=== PATIENT | female | born 1990 | race Caucasian/White ===

== ENCOUNTER → 2023-09-01 09:37 | Outpatient (REF) | payer BC, SELFPAY | LOC: HWRAD 09:37 | PROVIDERS: ATTENDING PHYSICIAN Obstetrics & Gynecology Gynecology; FAMILY PHYSICIAN Family Medicine | DX: N93.9 Abnormal uterine and vaginal bleeding, unspecified (principal) | CPT/HCPCS: 76830; 76856 ==

== ENCOUNTER → 2024-12-26 11:11 | Outpatient (REF) | payer BC, SELFPAY | LOC: PNTC 11:11 | PROVIDERS: ATTENDING PHYSICIAN Student in an Organized Health Care Education/Training Program | DX: O36.5990 Maternal care for other known or suspected poor fetal growth, unspecified trimester, not applicable or unspecified (principal) | CPT/HCPCS: 76815 ==

== ENCOUNTER → 2025-01-14 11:27 | Outpatient (REF) | payer BC, SELFPAY | LOC: PNTC 11:27 | PROVIDERS: ATTENDING PHYSICIAN Student in an Organized Health Care Education/Training Program | DX: O35.2XX0 Maternal care for (suspected) hereditary disease in fetus, not applicable or unspecified (principal) | CPT/HCPCS: 76805 ==

== ENCOUNTER → 2025-02-11 09:03 | Outpatient (REF) | payer BC, SELFPAY | LOC: PNTC 09:03 | PROVIDERS: ATTENDING PHYSICIAN Student in an Organized Health Care Education/Training Program | DX: O09.529 Supervision of elderly multigravida, unspecified trimester (principal); Q18.0 Sinus, fistula and cyst of branchial cleft | CPT/HCPCS: 76811; 76817 ==

== ENCOUNTER → 2025-03-25 10:59 | Outpatient (REF) | payer BC, SELFPAY | LOC: PNTC 10:59 | PROVIDERS: ATTENDING PHYSICIAN Obstetrics & Gynecology | DX: O09.522 Supervision of elderly multigravida, second trimester (principal); O28.3 Abnormal ultrasonic finding on antenatal screening of mother; O35.8XX0 Maternal care for other (suspected) fetal abnormality and damage, not applicable or unspecified | CPT/HCPCS: 76816 ==

== ENCOUNTER → 2025-05-06 09:50 | Outpatient (REF) | payer BC, SELFPAY | LOC: PNTC 09:50 | PROVIDERS: ATTENDING PHYSICIAN Advanced Practice Midwife | DX: O09.523 Supervision of elderly multigravida, third trimester (principal); O28.3 Abnormal ultrasonic finding on antenatal screening of mother; O35.8XX0 Maternal care for other (suspected) fetal abnormality and damage, not applicable or unspecified | CPT/HCPCS: 36415; 76816; 86850; 86900; 86901; 96372; J2790 ==

== ENCOUNTER → 2025-06-03 09:57 | Outpatient (REF) | payer BC, SELFPAY | LOC: PNTC 09:57 | PROVIDERS: ATTENDING PHYSICIAN Obstetrics & Gynecology | DX: O09.523 Supervision of elderly multigravida, third trimester (principal); O28.3 Abnormal ultrasonic finding on antenatal screening of mother; O35.8XX0 Maternal care for other (suspected) fetal abnormality and damage, not applicable or unspecified | CPT/HCPCS: 76816 ==

== ENCOUNTER 2025-06-29 15:28 | Inpatient (IN) | payer BC, SELFPAY ==
[2025-06-29] MEDS: LR 1000 IV ×2 (16:00→19:43)
[2025-06-29 16:16] VITALS: BP 101/86
[2025-06-29 16:38] LABS: Hematocrit 38.4 % (37.0-47.0); Hemoglobin 13.6 g/dL (12.0-16.0); Mean Corp Hgb Conc. 35.4 g/dL (33.0-37.0); Mean Corpuscular Volume 86.9 fL (81.0-99.0); Nucleated Red Blood Cells % 0 %; Platelet Count 196 10^3/uL (130-400); Red Cell Dist. Width 12.7 % (11.5-14.5)
[2025-06-29] MEDS: PENICILLIN 110 UNITS IV (17:45)
[2025-06-29] MEDS: PENICILLIN 55 UNITS IV (22:06)
[2025-06-30] MEDS: PENICILLIN 55 UNITS IV (01:58)
[2025-06-30] MEDS: PITOCIN 30 UNITS/NSS 500 ML IV ×2 (05:23→06:12)
[2025-06-30] MEDS: XYLOCAINE-MPF 1% VIAL 3 ML INFIL (05:24)
[2025-06-30] MEDS: METHERGINE INJECTION 0.2 MG IM (06:10)
[2025-06-30] MEDS: MOTRIN 600 MG PO ×3 (06:15→22:14)
[2025-06-30] MEDS: TYLENOL 650 MG PO ×3 (06:15→22:15)
[2025-06-30] MEDS: TRANEXAMIC ACID 100 IV (06:40)
[2025-06-30] MEDS: CYTOTEC 800 MCG RECTAL (06:55)
[2025-06-30] MEDS: COLACE 100 MG PO ×2 (07:22→22:14)
[2025-06-30 16:01] VITALS: BMI 27.8
[2025-06-30] MEDS: SENOKOT 17.2 MG PO (22:15)
[2025-07-01] MEDS: MOTRIN 600 MG PO (05:58)
[2025-07-01] MEDS: TYLENOL 650 MG PO (05:58)
[2025-07-01] MEDS: COLACE 100 MG PO (08:19)
[2025-07-01] MEDS: RHOGAM 300 MCG IM (11:34)
[2025-07-01 13:39] LABS: Syphilis/T. pallidum Ab Reflex Negative (Negative)
== END 2025-07-01 17:52 | disposition home or self-care (01) | DRG 806 ==
LOC: LDRP 15:28
PROVIDERS: Obstetrics & Gynecology; ADMITTING PHYSICIAN Advanced Practice Midwife
PROC: 6A550ZT Pheresis of Cord Blood Stem Cells, Single (ICD-10-PCS; 2025-06-30)
PROC: 10E0XZZ Delivery of Products of Conception, External Approach (ICD-10-PCS; 2025-06-30)
PROC: 0HQ9XZZ Repair Perineum Skin, External Approach (ICD-10-PCS; 2025-06-30)
PROC: 3E0234Z Introduction of Serum, Toxoid and Vaccine into Muscle, Percutaneous Approach (ICD-10-PCS; 2025-07-01)
DX: O42.02 Full-term premature rupture of membranes, onset of labor within 24 hours of rupture (principal); O72.2 Delayed and secondary postpartum hemorrhage; Z37.0 Single live birth; Z3A.39 39 weeks gestation of pregnancy; O99.824 Streptococcus B carrier state complicating childbirth; O69.81X0 Labor and delivery complicated by cord around neck, without compression, not applicable or unspecified; O70.0 First degree perineal laceration during delivery
CPT/HCPCS: 85025; 85461; 86780; 86850; 86870; 86900; 86901; J2790